=== PATIENT | female | born 1965 | race African-American/Black ===

== ENCOUNTER 2019-11-16 07:14 | Emergency (ER) | payer MEDICAID ==
[~2019-11-16] VITALS: Ht 162.6 cm; Wt 86.0 kg
[2019-11-16] MEDS ORDERED: MORPHINE SULFATE 4 MG/ML CPJ (NOT FOR IM USE) IV STA ×2 (08:43→09:49)
[2019-11-16] MEDS ORDERED: MORPHINE SULFATE 10 MG/ML CPJ IM STA (08:53)
[2019-11-16 09:53] LABS: BASOPHILS % 0.4 % (0.0-2.0); EOSINOPHILS % 1.9 % (0.0-5.0); HEMATOCRIT. 41.2 % (36.0-48.0); HEMOGLOBIN. 14.1 g/dL (12.0-16.0); LYMPHOCYTES % 27.9 % (20.0-50.0); MEAN CORPUSCULAR HEMOGLOBIN 31.2 pg (28.0-32.0); MEAN CORPUSCULAR VOLUME 91.4 fL (81.0-99.0); MEAN PLATELET VOLUME 8.8 fl (7.4-10.4); NEUTROPHILS % 63.8 % (40.0-76.0); PLATELET 205 x1000/uL (130-400); RED BLOOD CELL COUNT 4.51 mill/uL (4.2-5.4); RED CELL DISTRIBUTION WIDTH 13.5 % (11.6-14.6)
[2019-11-16 09:54] LABS: CHLORIDE 109 mEq/L (98-107)
[2019-11-16] MEDS ORDERED: IOHEXOL-300 100 ML BOTTLE ONE (12:29)
[2019-11-16] MEDS ORDERED: KETOROLAC 30MG/ML VIAL IV NR (14:50)
[2019-11-16] MEDS ORDERED: ONDANSETRON HCL 4MG/2ML INJ IV ONE (16:30)
[2019-11-16] MEDS ORDERED: MORPHINE SULFATE 4 MG/ML CPJ (NOT FOR IM USE) IV ONE (16:30)
[2019-11-16 18:01] LABS: CREATINE KINASE 203 IU/L (26-192)
[2019-11-16 21:15] VITALS: BP 115/82
== END 2019-11-16 22:04 | disposition short-term general hospital (02) ==
LOC: ER 07:14
DX: M54.6 Pain in thoracic spine (principal); R10.9 Unspecified abdominal pain; R07.9 Chest pain, unspecified; M25.562 Pain in left knee; R94.31 Abnormal electrocardiogram [ECG] [EKG]; M17.12 Unilateral primary osteoarthritis, left knee; V49.9XXA Car occupant (driver) (passenger) injured in unspecified traffic accident, initial encounter; Y93.9 Activity, unspecified; Y92.488 Other paved roadways as the place of occurrence of the external cause
CPT/HCPCS: 36415; 71260; 73560; 74177; 80053; 82550; 84484; 85025; 85610; 93005; 96374; 96375; 96376; 99285; J1885; J2270; J2405; Q9967; Z7610

== ENCOUNTER 2019-11-23 05:48 | Emergency (ER) | payer MEDICAID ==
[~2019-11-23] VITALS: Ht 167.6 cm; Wt 85.0 kg
[2019-11-23] MEDS ORDERED: IBUPROFEN 600MG TABLET PO STA (06:28)
[2019-11-23 09:27] LABS: BASOPHILS % 0.5 % (0.0-2.0); CHLORIDE 109 mEq/L (98-107); EOSINOPHILS % 2.2 % (0.0-5.0); HEMATOCRIT. 38.1 % (36.0-48.0); HEMOGLOBIN. 12.7 g/dL (12.0-16.0); LYMPHOCYTES % 20.9 % (20.0-50.0); MEAN CORPUSCULAR VOLUME 92.8 fL (81.0-99.0); MEAN PLATELET VOLUME 8.5 fl (7.4-10.4); MONOCYTES % 5.4 % (2.0-8.0); PLATELET 225 x1000/uL (130-400); RED BLOOD CELL COUNT 4.11 mill/uL (4.2-5.4); RED CELL DISTRIBUTION WIDTH 13.7 % (11.6-14.6)
[2019-11-23 09:32] LABS: ETHANOL BLOOD < 10 mg/dL
[2019-11-23 09:37] LABS: CREATINE KINASE 70 IU/L (26-192)
[2019-11-23 11:00] VITALS: BP 130/75
== END 2019-11-23 11:51 | disposition home or self-care (01) ==
LOC: ER 05:48
DX: R07.9 Chest pain, unspecified (principal); I10 Essential (primary) hypertension; E78.00 Pure hypercholesterolemia, unspecified
CPT/HCPCS: 36415; 71045; 80053; 80320; 82550; 84484; 85025; 93005; 99284; G0480

== ENCOUNTER 2021-07-09 12:08 | Emergency (ER) | payer MEDICAID ==
[~2021-07-09] VITALS: Ht 172.7 cm; Wt 65.0 kg
[~2021-07-09 12:08] MED LIST: ALBU05 NEB; ARIP5TAB58 MT; ASPI-1497 PO; CARV6.2548 PO; FAMO20TA8 MT; FURO40TA5 MT; HYDR-4346 PO; NITR0.4T49 SL; PARO10TA74 MT; POTA10CA42 PO
[2021-07-09 12:09] VITALS: BP 175/72
[2021-07-09] MEDS ORDERED: KETOROLAC 30MG/ML VIAL IM ONE (12:45)
[2021-07-09] MEDS ORDERED: ACETAMINOPHEN 325MG TABLET PO ONE (12:45)
[2021-07-09] MEDS ORDERED: NAPR-1176 MT (13:39)
[2021-07-09] MEDS ORDERED: TOPUD MT (13:39)
== END 2021-07-09 13:57 | disposition home or self-care (01) ==
LOC: ER 12:08
DX: S30.0XXA Contusion of lower back and pelvis, initial encounter (principal); I11.0 Hypertensive heart disease with heart failure; I50.9 Heart failure, unspecified; J44.1 Chronic obstructive pulmonary disease with (acute) exacerbation; J45.909 Unspecified asthma, uncomplicated; E11.9 Type 2 diabetes mellitus without complications; Z79.899 Other long term (current) drug therapy; Z79.82 Long term (current) use of aspirin; X58.XXXA Exposure to other specified factors, initial encounter; Y93.89 Activity, other specified; Y92.89 Other specified places as the place of occurrence of the external cause; Y99.8 Other external cause status
CPT/HCPCS: 72100; 96372; 99283; J1885

== ENCOUNTER 2022-01-17 06:50 | Emergency (ER) | payer MEDICAID ==
[~2022-01-17] VITALS: Ht 167.6 cm; Wt 83.0 kg
[~2022-01-17 06:50] MED LIST changes: +NAPR-1176 MT; +TOPUD MT
[2022-01-17 07:19] LABS: BASOPHILS % 0.7 % (0.0-2.0); EOSINOPHILS % 4.2 % (0.0-5.0); LYMPHOCYTES % 40.8 % (20.0-50.0); MEAN CORPUSCULAR HEMOGLOBIN 31.7 pg (28.0-32.0); MEAN CORPUSCULAR VOLUME 92.5 fL (81.0-99.0); MEAN PLATELET VOLUME 8.9 fl (7.4-10.4); NEUTROPHILS % 46.3 % (40.0-76.0); PLATELET 203 x1000/uL (130-400); RED BLOOD CELL COUNT 4.11 mill/uL (4.2-5.4); RED CELL DISTRIBUTION WIDTH 14.3 % (11.6-14.6)
[2022-01-17 07:24] LABS: CHLORIDE 110 mEq/L (98-107)
[2022-01-17 16:30] VITALS: BP 128/72
== END 2022-01-17 16:46 | disposition short-term general hospital (02) ==
LOC: ER 06:50 → CANBEDREQ 13:37 → ER 16:46
DX: I11.0 Hypertensive heart disease with heart failure (principal); I50.9 Heart failure, unspecified; E11.9 Type 2 diabetes mellitus without complications; I25.10 Atherosclerotic heart disease of native coronary artery without angina pectoris; Z95.810 Presence of automatic (implantable) cardiac defibrillator; F17.210 Nicotine dependence, cigarettes, uncomplicated; Z79.82 Long term (current) use of aspirin
CPT/HCPCS: 36415; 71045; 80053; 83880; 84484; 85025; 87426; 93005; 94660; 99291